=== PATIENT | male | born 1995 | race Caucasian/White ===

== ENCOUNTER 2017-07-04 22:15 | Emergency (ER) | payer OTHER ==
[~2017-07-04] VITALS: Ht 177.8 cm; Wt 90.9 kg
[2017-07-04 22:19] VITALS: BP 140/75; TEMP 99.1
[2017-07-05 00:07] VITALS: PULSE 110
== END 2017-07-05 00:05 | disposition home or self-care (01) ==
LOC: COL.ER 22:15
DX: J10.1 Influenza due to other identified influenza virus with other respiratory manifestations (principal)